=== PATIENT | female | born 1945 | race Caucasian/White ===

== ENCOUNTER → 2021-11-30 14:33 | Outpatient (CLI) | payer MEDICARE, SELFPAY ==
--- NOTE | ~2021-11-30 | MR_ITS ---
EXAMINATION: MR lumbar spine wo [facility] EXAM DATE: 11/30/2021 15:17 INDICATION: M54.5 - Low back pain low back pain. TECHNIQUE: Multi-sequential, multiplanar MR images of the lumbar spine were obtained without contrast . Sagittal T1, T2, T2 fat saturation images. Axial T2 weighted images. Comparison is made to prior examination from 09/29/2018. FINDINGS: Moderate to severe loss of the disc height at L2-3 and L3-4, moderate at L1-2 and L2-3. Mil d to moderate disc disease L4-5 and L5-S1. There is 3 mm anterolisthesis of T12 on L1, 3-4 mm retroli sthesis L2 on L3 and L3 on L4. There is 5 mm anterolisthesis L4 on L5 and 3 mm anterolisthesis L5 on S1. No spondylolysis suspected. The conus medullaris terminates at the L1 level and has normal signal intensity and morphology. There are no suspicious marrow signal abnormalities. Paraspinal soft tiss ue is unremarkable. Level by level evaluation: T12-L1: There is a mild to moderate diffuse disc bulge. Facet arthropathy: Moderate. Neural foraminal stenosis: Mild right. Central canal stenosis: Mild. L1-L2: There is a moderate diffuse disc bulge. Facet arthropathy: Moderate. Neural foraminal stenosis: Mild right. Central canal stenosis: Mild. L2-L3: There is a moderate to large diffuse disc bulge. Facet arthropathy: Moderate to severe . Ligamentum flavum enlargement. Neural foraminal stenosis: Moderate right, mild to moderate left. Central canal stenosis: Moderate, nerve root crowding. L3-L4: There is a moderate diffuse disc bulge. Facet arthropathy: Moderate. Neural foraminal stenosis: Moderate to severe left, mild to moderate right. Central canal stenosis: Mild to moderate. L4-L5: There is a mild to moderate diffuse disc bulge. Facet arthropathy: Severe. Neural foraminal stenosis: Moderate to severe left, moderate right. Central canal stenosis: Moderate (less than L2-3). L5-S1: There is a mild to moderate diffuse disc bulge. Facet arthropathy: Severe right, moderate left. Neural foraminal stenosis: Mild to moderate left, mild right. Central canal stenosis: Mild. Mild progression spondylosis compared to prior study. IMPRESSION: 1. Overall moderate to severe lumbar spondylosis, mild interval progression. 2. Central canal most narrowed L2-3, left L3-4 and L4-5 neural foramen most narrowed. Reviewed, dictated and finalized at location A. MODEL DEPARTMENT SUPERVISOR IMPRESSION: 1. Overall moderate to severe lumbar spondylosis, mild interval progression. 2. Central canal most narrowed L2-3, left L3-4 and L4-5 neural foramen most na rrowed.
== END ==
PROVIDERS: PCP Internal Medicine; Visit Provider Internal Medicine
DX: M47.815 Spondylosis without myelopathy or radiculopathy, thoracolumbar region (principal); M48.05 Spinal stenosis, thoracolumbar region; M47.817 Spondylosis without myelopathy or radiculopathy, lumbosacral region; M48.07 Spinal stenosis, lumbosacral region
CPT/HCPCS: 72148

== ENCOUNTER 2022-03-13 14:25 | Emergency (ER) | payer MEDICARE, SELFPAY ==
--- NOTE | ~2022-03-13 | XR_ITS ---
EXAM: XR foot RT min 3V HISTORY: FALL, BRUISING THE 4 5TH METATARSALS OF RT FOOT COMPARISON: None available FINDINGS: Decreased mineralization. Nondisplaced slightly oblique fracture of the proximal fifth met atarsal, 1.8 cm from the tuberosity and involving the intermetatarsal articulation. No lytic or blast ic lesion. Mild scattered degenerative change. Plantar enthesopathy. Os navicularis. No erosion or pe riosteal change. Vascular calcifications. IMPRESSION: Nondisplaced proximal right fifth metatarsal fracture (Marroquin type fracture). Reviewed, dictated and finalized at location K.
[2022-03-13 14:35] VITALS: BP 190/86; PULSE 88; RESP 16; TEMP 36.1; O2SAT 98
--- NOTE | 2022-03-13 14:35 | ED.LOWEXIN ---
HPI - Extremity Injury (Lower) General Chief Complaint: Extremity Injury, Lower Stated Complaint: Right foot Pain Time Seen by Provider: 03/13/22 14:36 Source: patient Mode of arrival: ambulatory Limitations: no limitations History of Present Illness HPI Narrative: 76 y/o female presented for c/o right lateral foot pain after injury today. States she twisted the foot after missing a step, causing her to invert the right foot. Endorses bruising. Pain is described as throbbing, rates 4/10 at worst,no pain at rest. Denies numbness, tingling or weakness, denies decreased ROM. Ambulates without assistive device. Related Data Home Medications Medication Instructions Recorded Confirmed bimatoprost 0.01 % eye drops 1 drop EACH EYE DAILY 10/09/19 03/13/22 conjugated estrogens 0.3 mg tablet 0.3 mg PO DAILY 10/09/19 03/13/22 metformin 500 mg tablet,extended 1,000 mg PO DAILY tablet 10/09/19 03/13/22 release 24 hr Bifidobacterium infantis 4 mg 4 mg PO DAILY 01/15/20 03/13/22 capsule aspirin 81 mg tablet,delayed 81 mg PO DAILY 10/28/20 03/13/22 release loperamide 2 mg capsule 2 mg PO Q6H 03/11/21 03/13/22 cholecalciferol (vitamin D3) 50 50 mcg PO DAILY 07/27/21 03/13/22 mcg (2,000 unit) tablet cyanocobalamin (vitamin B-12) 500 500 mcg PO .COMPLEX 07/27/21 03/13/22 mcg tablet calcium carbonate 500 mg-vitamin 1 tablet PO TID tablet 08/27/21 03/13/22 D3 10 mcg (400 unit) tablet diclofenac sodium 1 % topical gel 2 g TOPICAL QID 08/27/21 03/13/22 famotidine 20 mg tablet 10 mg PO DAILY tablet 08/27/21 03/13/22 fexofenadine 180 mg tablet 180 mg PO DAILY 08/27/21 03/13/22 ramipril 2.5 mg capsule 2.5 mg PO DAILY cap 08/27/21 03/13/22 prednisone 1 mg tablet 4 mg PO DAILY tablet 12/22/21 03/13/22 Allergies Allergy/AdvReac Type Severity Reaction Status Date / Time NSAIDS (Non-Steroidal Allergy Unknown Shortness Verified 03/13/22 14:30 Anti-Inflamma of Breath bempedoic acid AdvReac Intermediate myalgia Verified 03/13/22 14:30 [From Nexletol] Hlsashd-NVO-PmT Reductase AdvReac Mild myalgia Verified 03/13/22 14:30 Inhibitor [Ibeljnr-Uvp-Ors Reductase Inhibitor] Review of Systems Review of Systems: CONSTITUTIONAL: Denies body aches, fever, chills EYES: Denies visual changes ENT: Denies rhinorrhea, congestion CARDIOVASCULAR: Denies chest pain, palpitations, or edema. RESPIRATORY: Denies cough or dyspnea. GASTROINTESTINAL: Denies abdominal pain, nausea, vomiting, or diarrhea. SKIN: Denies rash, itching, or wounds. MUSCULOSKELETAL: Reports right foot pain NEUROLOGIC: Denies headache, numbness, tingling, or weakness. PSYCH: Denies depression or anxiety. All systems reviewed & are unremarkable except as noted in HPI and below PMFSH Past Medical History Medical History Abnormal finding of blood chemistry, unspecified Achilles tendon contracture, bilateral Anemia Anxiety Arthritis Arthritis of foot, left, degenerative ASHD (arteriosclerotic heart disease) Benign essential hypertension BMI 30.0-30.9,adult BMI 31.0-31.9,adult BMI 32.0-32.9,adult Chronic diarrhea Chronic low back pain Chronic pain in left foot Diabetes Diarrhea Diverticulosis DM type 2 (diabetes mellitus, type 2) Dry eyes Encounter for Medicare annual wellness exam Encounter for routine adult health examination without abnormal findings Glaucoma Hearing loss in right ear Hormone replacement therapy (HRT) Hyperlipidemia IBS (irritable bowel syndrome) Irritable bowel syndrome with diarrhea Macular degeneration On snf drug therapy PMR (polymyalgia rheumatica) Vision loss Vitamin D deficiency Surgical History Surgical History H/O heart artery stent Cardiac Balloon Angioplasty with Stent-LAD: 1994 Repeat angioplasty/restenosis: 1995 Family History Family History (Reviewed 03/13/22 @ 14:49 by Paula Talavera
== END 2022-03-13 15:03 | disposition home or self-care (01) ==
PROVIDERS: Emergency Provider Nurse Practitioner Family; PCP Internal Medicine
DX: S92.354A Nondisplaced fracture of fifth metatarsal bone, right foot, initial encounter for closed fracture (principal); X50.9XXA Other and unspecified overexertion or strenuous movements or postures, initial encounter; I10 Essential (primary) hypertension; E11.9 Type 2 diabetes mellitus without complications; H40.9 Unspecified glaucoma; E78.5 Hyperlipidemia, unspecified; H35.30 Unspecified macular degeneration; E55.9 Vitamin D deficiency, unspecified; M19.072 Primary osteoarthritis, left ankle and foot; Z79.82 Long term (current) use of aspirin; Z79.84 Long term (current) use of oral hypoglycemic drugs
CPT/HCPCS: 73630; 99214; G0463

== ENCOUNTER → 2023-02-01 10:53 | Outpatient (CLI) | payer MEDICARE, SELFPAY ==
--- NOTE | ~2023-02-01 | XR_ITS ---
EXAMINATION: XR chest 2V DATE: 02/01/2023 11:24 INDICATION: Cough. TECHNIQUE: Frontal and lateral views of the chest were obtained. COMPARISON: CT abdomen and pelvis 06/28/2019 FINDINGS: There is no pneumonia, pleural effusion, or pneumothorax. The heart size is normal. IMPRESSION: 1. No acute cardiopulmonary disease. Reviewed, dictated and finalized at location A. ITY ASSOCIATE
== END ==
PROVIDERS: PCP Internal Medicine; Visit Provider Internal Medicine
DX: R05.9 Cough, unspecified (principal)
CPT/HCPCS: 71046

== ENCOUNTER 2023-03-31 03:10 | Day surgery (SDC) | payer MEDICARE, SELFPAY ==
[2023-03-24 12:59] VITALS: BMI 28.6
[2023-03-31 12:28] VITALS: BP 144/53; PULSE 77; RESP 18; TEMP 36.1; O2SAT 96
--- NOTE | 2023-03-31 12:52 | WPDHPUPDATE1 ---
History and Physical Update Update Date/Time: 03/31/23 12:52 History and Physical has been reviewed, including an updated exam of the patient. There are NO changes in the patient's condition. Risks, benefits, and alternatives have been discussed and questions answered. Patient agrees to proceed with procedure.
--- NOTE | 2023-03-31 12:58 | WPDANESEPPF ---
Anes - Initial Pre Proc Eval Procedure: Operation Date: 03/31/23 13:00 Proposed Procedures p Esophagogastroduodenoscopy - Rian Uribe MD Date/Time: 03/31/23 12:58 Surgeon: Rian Uribe MD Pre Op Diagnosis: Upper Abdominal Pain Patient Data Age: 77 Gender: F Height: 1.57 m Weight: 70.6 kg Last Vital Signs Temp 96.9 F L 03/31/23 12:28 Pulse 77 03/31/23 12:28 Resp 18 03/31/23 12:28 BP 144/53 H 03/31/23 12:28 Pulse Ox 96 03/31/23 12:28 O2 Del Method Room Air 03/31/23 12:28 Allergies Allergy/AdvReac Type Severity Reaction Status Date / Time NSAIDS (Non-Steroidal Allergy Unknown Shortness Verified 03/31/23 12:31 Anti-Inflamma of Breath bempedoic acid AdvReac Intermediate myalgia Verified 03/31/23 12:31 [From Nexletol] Bszxbta-XNK-NtW Reductase AdvReac Mild myalgia Verified 03/31/23 12:31 Inhibitor [Tnznyzm-Zci-Pdl Reductase Inhibitor] Home Medications Medication Instructions Recorded Confirmed Type bimatoprost 0.01 % eye drops 1 drop ophthalmic (eye) DAILY 10/09/19 03/24/23 History (Lumigan) conjugated estrogens 0.3 mg tablet 0.3 mg PO DAILY 10/09/19 03/24/23 History (Premarin) metformin 500 mg tablet,extended 1,000 mg PO DAILY 10/09/19 03/24/23 History release 24 hr (Glucophage XR) Bifidobacterium infantis 4 mg 4 mg PO DAILY 01/15/20 03/24/23 History capsule (Align) aspirin 81 mg tablet,delayed 81 mg PO DAILY 10/28/20 03/24/23 History release (Adult Low Dose Aspirin) loperamide 2 mg capsule (Imodium 2 mg PO Q6H 03/11/21 03/24/23 History A-D) cholecalciferol (vitamin D3) 50 50 mcg PO DAILY 07/27/21 03/24/23 History mcg (2,000 unit) tablet cyanocobalamin (vitamin B-12) 500 500 mcg PO .COMPLEX 07/27/21 03/24/23 History mcg tablet (Vitamin B-12) calcium carbonate 500 mg-vitamin 1 tablet PO TID 08/27/21 03/24/23 History D3 10 mcg (400 unit) tablet (Calcium 500 With D) lidocaine 5 % topical patch 3 patch topical DAILY #15 ea 11/24/21 03/24/23 Rx (Lidoderm) prednisone 1 mg tablet 4 mg PO DAILY 12/22/21 03/24/23 History ramipril 2.5 mg capsule See Rx Instructions .Route 09/13/22 03/24/23 Rx .COMPLEX #180 caps fluticasone propionate 50 See Rx Instructions .Route 10/10/22 03/24/23 Rx mcg/actuation nasal .COMPLEX #48 grams spray,suspension lorazepam 0.5 mg tablet 0.5 mg PO TID PRN anxiety #90 tabs 10/31/22 03/24/23 Rx acebutolol 400 mg capsule See Rx Instructions .Route 01/17/23 03/24/23 Rx .COMPLEX #180 caps cyclobenzaprine 10 mg tablet 10 mg PO TID PRN Pain 01/24/23 03/24/23 History methylcellulose (laxative) 1 tbsp PO DAILY #1,191 grams 03/22/23 03/24/23 Rx (Citrucel Sugar Free oral powder) omeprazole 20 mg capsule,delayed 20 mg PO DAILY #30 caps 03/22/23 03/24/23 Rx release atorvastatin 10 mg tablet (Lipitor) 5 mg PO DAILY 03/24/23 03/24/23 History Norvasc 5 mg tablet (amlodipine) See Rx Instructions .Route 03/27/23 Rx .COMPLEX #90 tabs Patient hx anesthesia problems: none Family hx anesthesia problems: none Results Review: All pre-operative results and documents have been reviewed as part of the pre-operative evaluation. [facility] Past Medical History Medical History Abnormal finding of blood chemistry, unspecified Achilles tendon contracture, bilateral Anemia Anxiety Arthritis Arthritis of foot, left, degenerative ASHD (arteriosclerotic heart disease) Benign essential hypertension BMI 29.0-29.9,adult BMI 30.0-30.9,adult BMI 31.0-31.9,adult BMI 32.0-32.9,adult Chronic diarrhea Chronic low back pain Chronic pain in left foot Diarrhea Diverticulosis DM type 2 (diabetes mellitus, type 2) Dry eyes Encounter for Medicare annual wellness exam Encounter for routine adult health examination without abnormal findings Glaucoma Hearing loss in right ear Hormone replacement therapy (HRT) Hyperlipidemia IBS (irritable bowel syndrom
[2023-03-31 13:00] LABS: Glucose Point of Care 139 mg/dl (65-105)
[2023-03-31] MEDS: LACTATED RINGERS 1,000 ML 150 ML IV CONT (13:00)
[2023-03-31 13:41] VITALS: BP 99/40; PULSE 67; RESP 22; O2SAT 97
[2023-03-31 13:51] VITALS: BP 117/58; PULSE 71; RESP 28; O2SAT 97
[2023-03-31 14:02] VITALS: BP 128/81; PULSE 74; RESP 20; O2SAT 99
== END 2023-03-31 14:25 | disposition home or self-care (01) ==
PROVIDERS: PCP Internal Medicine; Visit Provider Internal Medicine Gastroenterology
PROC: 0DJ08ZZ Inspection of Upper Intestinal Tract, Via Natural or Artificial Opening Endoscopic (ICD-10-PCS; CPT 43235; principal; 2023-03-31 13:00)
DX: R10.13 Epigastric pain (principal); E11.9 Type 2 diabetes mellitus without complications; E78.5 Hyperlipidemia, unspecified; H40.9 Unspecified glaucoma; K58.0 Irritable bowel syndrome with diarrhea; M06.9 Rheumatoid arthritis, unspecified; E55.9 Vitamin D deficiency, unspecified; I10 Essential (primary) hypertension; I25.10 Atherosclerotic heart disease of native coronary artery without angina pectoris; F41.9 Anxiety disorder, unspecified; H35.30 Unspecified macular degeneration; Z79.84 Long term (current) use of oral hypoglycemic drugs; Z79.82 Long term (current) use of aspirin; E66.9 Obesity, unspecified; Z68.28 Body mass index [BMI] 28.0-28.9, adult
CPT/HCPCS: 43239; 82948; 87081; J2704; J7120

== ENCOUNTER 2023-05-25 13:45 | Outpatient (CLI) | payer MEDICARE, SELFPAY ==
--- NOTE | ~2023-05-25 | CT_ITS ---
EXAMINATION: CT abdomen w con INDICATION: Epigastric pain TECHNIQUE: Computed tomographic images of the abdomen were obtained after the administration of 100 c c of Omnipaque 350 intravenous contrast. The dose-length product (DLP) was 526.50 mGy-cm. Automated e xposure control and iterative reconstruction technique were employed. COMPARISON: 06/28/2019 FINDINGS: Minimal dependent atelectasis is present in the lung bases. The heart size is normal. There is calcified coronary artery atherosclerosis. Decreased subendocardial enhancement in the left ventr icular apex is consistent with age-indeterminate myocardial infarction, a new finding since the angel luis rison examination. 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 The liver is otherwise unremarkable. The spleen, pancreas, gallbladder, and adrenal glands are normal. Cysts of the kidneys measure up to 8 mm on the right. There are no pat hologically enlarged abdominal lymph nodes. No free intraperitoneal gas or evidence of bowel obstruct ion. The appendix is normal. IMPRESSION: 1. No CT correlate for the patient's symptoms. 2. Decreased subendocardial enhancement in the left ventricular apex, consistent with a digitorum jayson cardial infarction, new since the comparison examination. Reviewed, dictated and finalized at location L. IMPRESSION: 1. No CT correlate for the patient's symptoms. 2. Decreased subendocardial enhancement in the left ventricular apex, consisten t with a digitorum myocardial infarction, new since the comparison examination.
[2023-05-25 14:40] LABS: Alanine Aminotransferase 19 U/L (6-35); Albumin Level 4.3 g/dL (3.5-5.1); Alkaline Phosphatase 41 U/L (38-126); Amylase 83 U/L (30-110); Anion Gap 10 mmol/L (8-16); Aspartate Amino Transferase 25 U/L (14-36); Bilirubin,Total 0.5 mg/dL (0.2-1.3); Blood Urea Nitrogen 16 mg/dL (7-17); Calcium 9.4 mg/dL (8.4-10.2); Carbon Dioxide 24 mmol/L (22-30); Chloride 104 mmol/L (98-107); Estimated Glomerular Filt Rate > 60; Glucose 186 mg/dL (65-110); Lipase 116 U/L (23-300); Potassium 4.2 mmol/L (3.4-5.0); Sodium 138 mmol/L (137-145)
[2023-05-25 14:43] LABS: Estimated Glomerular Filt Rate > 60
== END 2023-05-25 13:46 | disposition home or self-care (01) ==
PROVIDERS: PCP Internal Medicine; Visit Provider Internal Medicine
DX: R10.13 Epigastric pain (principal); G89.29 Other chronic pain
CPT/HCPCS: 36415; 74160; 80053; 82150; 83690; Q9967